=== PATIENT | male | born 1990 | race Caucasian/White ===

== ENCOUNTER → 2020-11-20 | Outpatient (CLI) | payer BC ==
[~2020-11-20] MED LIST: ANTIVERT 25MG T25 MG PO; PREDNISONE20 MG PO
== END ==
LOC: KOH-I 14:49
DX: M54.5 Low back pain (principal)
CPT/HCPCS: 72110

== ENCOUNTER → 2020-12-02 | Outpatient (CLI) | payer BC | LOC: KOH-I 09:31 | DX: J15.8 Pneumonia due to other specified bacteria (principal); R91.8 Other nonspecific abnormal finding of lung field | CPT/HCPCS: 71046 ==

== ENCOUNTER 2021-08-28 19:41 | Emergency (ER) | payer BC | END 2021-08-28 20:34 | disposition home or self-care (01) | LOC: ER1 19:41 | DX: S50.11XA Contusion of right forearm, initial encounter (principal); W19.XXXA Unspecified fall, initial encounter | CPT/HCPCS: 73090; 73110; 99283 ==